=== PATIENT | male | born 2000 | race Two or more races ===

== ENCOUNTER → 2022-01-21 | Outpatient (CLI) | payer OTHER ==
[2022-01-21 15:47] LABS: Urine Bacteria NONE SEEN /hpf (None Seen); Urine Blood Negative /uL (Negative); Urine Mucus FEW (None Seen); Urine Specific Gravity 1.022 (1.001-1.035); Urine WBC 2 /hpf (0 - 3)
== END | disposition home or self-care (01) ==
LOC: LAB 15:11
PROVIDERS: ATTEND Urology
DX: N39.0 Urinary tract infection, site not specified (principal)
CPT/HCPCS: 81001; 87086

== ENCOUNTER → 2022-02-03 | Outpatient (CLI) | payer OTHER | END | disposition home or self-care (01) | LOC: LAB 10:50 | PROVIDERS: ATTEND Urology | DX: Z01.812 Encounter for preprocedural laboratory examination (principal) | CPT/HCPCS: 36415; 82565; 84520 ==

== ENCOUNTER → 2022-04-28 | Outpatient (CLI) | payer OTHER ==
[2022-04-28 14:29] LABS: Basophils # (auto) 0.1 10 ^3/uL (0-0.2); Basophils % (auto) 0.7 % (0.0-2.0); Eosinophils # (auto) 0.2 10 ^3/uL (0-0.8); Hematocrit 42.6 % (41.0-53.0); Hemoglobin 13.8 g/dL (13.5-17.5); Lymphocytes # (auto) 2.2 10 ^3/uL (0.4-5.4); Lymphocytes % (auto) 27.4 % (10.0-50.0); Mean Corpuscular Hemoglobin 28.1 pg (28.0-32.0); Mean Corpuscular Hgb Conc. 32.5 g/dL (32.0-36.0); Mean Corpuscular Volume 86.2 fL (80.0-100.0); Monocytes # (auto) 0.6 10 ^3/uL (0-1.3); Monocytes % (auto) 7.3 % (0.0-12.0); Neutrophils # (auto) 4.9 10 ^3/uL (1.6-8.6); Neutrophils % (auto) 61.6 % (37.0-80.0); Red Blood Cells 4.94 10^6/uL (4.5-5.90); Red Cell Distribution Width 13.6 % (11.8-14.3)
[2022-04-28 14:45] LABS: INR 1.11 (0.9-1.15); Partial Thromboplastin Time 28.5 sec (23.6-33.0)
[2022-04-28 14:58] LABS: BUN/Creatinine Ratio 16.2; Calcium 8.8 mg/dL (8.5-10.1); Potassium 4.2 mmol/L (3.5-5.1)
== END | disposition home or self-care (01) ==
LOC: LAB 14:20
PROVIDERS: ATTEND Internal Medicine Nephrology
DX: Z01.812 Encounter for preprocedural laboratory examination (principal); N18.9 Chronic kidney disease, unspecified; R80.9 Proteinuria, unspecified
CPT/HCPCS: 36415; 80048; 85025; 85610; 85730

== ENCOUNTER → 2022-06-25 | Outpatient (CLI) | payer OTHER ==
[2022-06-25 14:37] LABS: Basophils # (auto) 0 10 ^3/uL (0-0.2); Basophils % (auto) 0.6 % (0.0-2.0); Eosinophils # (auto) 0.3 10 ^3/uL (0-0.8); Eosinophils % (auto) 3.6 % (0.0-7.0); Hematocrit 43.2 % (41.0-53.0); Hemoglobin 13.9 g/dL (13.5-17.5); Lymphocytes # (auto) 2.2 10 ^3/uL (0.4-5.4); Lymphocytes % (auto) 31.2 % (10.0-50.0); Mean Corpuscular Hemoglobin 27.9 pg (28.0-32.0); Mean Corpuscular Hgb Conc. 32.1 g/dL (32.0-36.0); Mean Corpuscular Volume 86.8 fL (80.0-100.0); Monocytes # (auto) 0.5 10 ^3/uL (0-1.3); Monocytes % (auto) 7.8 % (0.0-12.0); Neutrophils % (auto) 56.8 % (37.0-80.0); Red Blood Cells 4.98 10^6/uL (4.5-5.90)
[2022-06-25 15:05] LABS: INR 1.07 (0.9-1.15); Partial Thromboplastin Time 28.2 sec (24.6-33.4)
[2022-06-25 15:43] LABS: Potassium 4.1 mmol/L (3.5-5.1)
[2022-06-25 15:58] LABS: Albumin 3.9 g/dL (3.4-5.0); BUN/Creatinine Ratio 13.2; Bilirubin, Total 0.5 mg/dL (0.2-1.0); Calcium 9.2 mg/dL (8.5-10.1); Total Protein 7.1 g/dL (6.4-8.2)
== END | disposition home or self-care (01) ==
LOC: LAB 14:22
PROVIDERS: ATTEND Internal Medicine Nephrology
DX: R31.9 Hematuria, unspecified (principal)
CPT/HCPCS: 36415; 80053; 85025; 85610; 85730